=== PATIENT | male | born 1970 | race Caucasian/White ===

== ENCOUNTER 2023-12-17 00:11 | Emergency (ER) | payer OTHER, SELFPAY ==
[2023-12-17 00:13] VITALS: BP 164/100
--- NOTE | 2023-12-17 00:46 | ED.GENMED ---
History of Present Illness
<LISETTE Salcido - Last Filed: 12/17/23 01:14>
General
Chief Complaint: Skin Problem
Source: patient
Exam Limitations: none
Time Seen by Provider: 12/17/23 00:22
Nursing documentation reviewed up to this point in time: agreed with
History of Present Illness
History of Present Illness:
52 yr old male presents to the ER complaining of hives. Patient woke up around 2:00 in the morning this morning with hives and itching he has been taking Benadryl 25 mg at a time however still with symptoms. He denies any difficulty breathing.
His lips felt slightly' funny ' prior to arrival but he denies any lip or tongue swelling. He has had viral symptoms including sneezing nasal congestion for the past several days but denies any fevers. He was using DayQuil. Denies any prior
allergy.
Past History
<LISETTE Salcido - Last Filed: 12/17/23 01:14>
Past History
ED Past Medical History: Arrthythmia (tachy-takes toprol daily) and HTN
ED Past Surgical History: Orthopedic and Other (Partial Left lobectomy)
Social History
Tobacco: Former smoker
Alcohol: Occasional
Drug: None
Personal:
Living: with family
Employment: Employed ([employer])
Family History
Family History: Other (Mother with pancreatic cancer, diabetes and hypertension); Negative Early CAD
Review of Systems
<LISETTE Salcido - Last Filed: 12/17/23 01:14>
Review of Systems
Allergies reviewed?: Yes
All Other Systems: ROS reviewed and negative except as documented in HPI and ROS
Constitutional: Reports no symptoms; Denies fever, fatigue or chills
EENT: Reports runny nose
Respiratory: Reports no symptoms
Cardiac: Reports no symptoms
ABD/GI: Reports no symptoms; Denies vomiting
Musculoskeletal: Reports no symptoms
Skin: Reports itching and rash
Psychiatric: Reports no symptoms
Phy Exam
<LISETTE Salcido - Last Filed: 12/17/23 01:14>
General Physical Exam
General Presentation: no apparent distress
General age: appears stated age
General Skin: warm and dry
General Habitus: normal
General Mental: alert
General Hydration: appears well hydrated
ENT Exam
ENT Exam: EOMI and neck supple
Additional ENT: No lip or tongue swelling
Cardiovascular Exam
Cardiovascular Exam: regular rate/rhythm, no murmur and normal peripheral pulses
Pulmonary Exam
Pulmonary Exam: lungs clear and no respiratory distress
Neurological Exam
Neurological Exam: alert
Musculoskeletal Exam
Musculoskeletal Exam: full ROM
Skin Exam
Skin Exam: normal color, warm/dry and other (Scattered hives to back abdomen legs)
Psychiatric Exam
Psychiatric Exam: normal mood/affect
Course
<LISETTE Salcido - Last Filed: 12/17/23 01:14>
Orders/Labs/Results
Orders:
Orders
12/17/23 00:46
Dexamethasone Sod Phosphate [Decadron] 10 mg IM NOW STA
Famotidine [Pepcid] 20 mg PO NOW STA
12/17/23 00:52
Vital Signs- Treatment ONCE
Frequency: Once
12/17/23 01:07
Montelukast Sodium [Singulair] 10 mg PO NOW STA
Vital Signs
Initial and Last Documented VS:
Initial Vital Signs
Temp Pulse Resp BP Pulse Ox
98.7 F 88 18 164/100 98
12/17/23 00:13 12/17/23 00:13 12/17/23 00:13 12/17/23 00:13 12/17/23 00:13
Last Documented Vital Signs
Temp Pulse Resp BP Pulse Ox
98.7 F 84 20 145/77 96
12/17/23 00:13 12/17/23 01:00 12/17/23 01:00 12/17/23 01:00 12/17/23 01:00
Tribunal Member consulted with Physician
Tribunal Member consulted with physician?: Yes
Name of Physician Consulted: Brooklynn
<Cj Overton DO - Last Filed: 12/17/23 01:12>
Orders/Labs/Results
Orders:
Orders
12/17/23 00:46
Dexamethasone Sod Phosphate [Decadron] 10 mg IM NOW STA
Famotidine [Pepcid] 20 mg PO NOW STA
12/17/23 00:52
Vital Signs- Treatment ONCE
Frequency: Once
12/17/23 01:07
Montelukast Sodium [Singulair] 10 mg PO NOW STA
Vital Signs
Initial and Last Documented VS:
Initial Vital Signs
Temp Pulse Resp BP Pulse Ox
98.7 F 88 18 164/100 98
12/17/23 00:13 12/17/23 00:13 12/17/23 00:13 12/17/23 00:13 12/17/23 00:13
Last Documented Vital Signs
Temp Pulse Resp BP Pulse Ox
98.7 F 84 20 145/77 96
12/17/23 00:13 12/17/23 01:00 12/17/23 01:00 12/17/23 01:00 12/17/23 01:00
<LISETTE Salcido - Last Filed: 12/17/23 01:14>
MDM/Problems Addressed
Differential Diagnosis Includes:
Not limited to allergic reaction/hives urticaria
MDM/Problems Addressed:
Patient presents with scattered hives however awake alert no acute distress not hypoxic no lip or tongue swelling. He has been taking DayQuil however has taken this before with no reaction possible viral versus allergic however stable for
discharge home with continued Benadryl. Patient has only been taking 25 mg of Benadryl at a time discussed to take at least 50 mg every 4-6 hours in addition will give patient 1 dose of IM Decadron here and Pepcid/Singular. pt eval by
Brooklynn.
Will d/c w/ Pepcid [id number] with Benadryl
<LISETTE Salcido - Last Filed: 12/17/23 01:14>
*Critical Care Note
Total Time (30-74mins, 75-104mins- exclusive of procedures): Not Applicable
ED Attending Note
<LISETTE Salcido - Last Filed: 12/17/23 01:14>
-
Portions of this chart may have been created with voice recognition software.� Occasional wrong word or��sound alike� substitutions may have occurred due to the inherent limitations of voice recognition software.
<Cj Overton DO - Last Filed: 12/17/23 01:12>
ED Attending Note
Patient seen and examined by attending physician: Yes
I performed the substantive portion of visit, reviewed & personally made and approve the management plan that is documented in note by myself or IVY.: Yes
ED Attending Note:
Patient is a 52-year-old male who presents to the emergency department with diffuse pruritic hives with a different feeling in his lips but no difficulty breathing or swallowing. This started couple days ago. Patient took 25 of Benadryl and seemed
to do better he also used hydrocortisone cream. Patient had hives years ago but nothing since. Patient denies any new lotions, materials or any other ingestible's. Patient has had a viral type illness with congestion and mucus production. On
physical exam patient's lungs are clear the oropharynx is clear. Heart is regular and abdomen soft nontender. Skin shows diffuse urticaria. Patient will be given 1 dose of Decadron and Singulair and see if he will improve.
Discharge Plan
Departure
Patient Disposition: Home (Routine Discharge)
Date of Disposition: 12/17/23
Time of Disposition: 01:12
Patient with high blood pressure during this ER visit?: Yes
Condition: Fair
Covid-19: Not Applicable
Discharge Problem:
Allergic reaction
Instructions: Hives (DC), BLOOD PRESSURE
Prescriptions:
No Action
metoprolol tartrate 25 MG tablet
25 mg PO DAILY
levocetirizine [Xyzal] 5 MG tablet
5 mg PO DAILY
diclofenac sodium 75 MG tablet,delayed release (DR/EC)
75 mg PO BID Qty: 14 0RF
Referrals:
Casey Jean MD [Family Provider] -
Activity Restrictions/Additional Instructions:
As discussed take at least 50 mg of Benadryl every 4-6 hours in addition take [id number] Pepcid daily follow-up with your family doctor next several days for reevaluation return if any worsening of symptoms including difficulty breathing lip
or tongue swelling or worsening rash
Interventions
Interventions:
*Risk Screen - Suicide Last Done: 12/17/23 00:13
*General Assessment Last Done: 12/17/23 00:58
*Neglect/Abuse Screening Last Done: 12/17/23 00:13
ED- Fall Risk Assessment Last Done: 12/17/23 00:56
*ED COVID-19 Vaccine History Last Done: 12/17/23 00:23
ED- Cardiac Assessment Last Done: 12/17/23 00:56
ED- Pulmonary Assessment Last Done: 12/17/23 00:56
ED-Skin Assessment Last Done: 12/17/23 00:56
Discharge Date and Time
Print Language: MALAY
[2023-12-17] MEDS: DECADRON 10 MG IM (00:51)
[2023-12-17] MEDS: PEPCID 20 MG PO (00:51)
[2023-12-17 00:54] VITALS: BMI 48.2
[2023-12-17 01:00] VITALS: BP 145/77
[2023-12-17] MEDS: SINGULAIR 10 MG PO (01:18)
== END 2023-12-17 01:25 | disposition home or self-care (01) ==
LOC: EMR 00:11
PROVIDERS: EMERGENCY PHYSICIAN Emergency Medicine; FAMILY PHYSICIAN Family Medicine
DX: T78.40XA Allergy, unspecified, initial encounter (principal); Y92.9 Unspecified place or not applicable; I10 Essential (primary) hypertension; Z82.49 Family history of ischemic heart disease and other diseases of the circulatory system; Z83.3 Family history of diabetes mellitus; Z87.891 Personal history of nicotine dependence
CPT/HCPCS: 99282; 96372